=== PATIENT | male | born 1935 | race Two or more races ===

== ENCOUNTER 2021-08-20 05:48 | Day surgery (SDC) | payer OTHER | END 2021-08-20 11:40 | disposition home or self-care (01) | LOC: AMB-ENDOS 05:48 | PROVIDERS: ATTEND Surgery | DX: K22.70 Barrett's esophagus without dysplasia (principal); K29.50 Unspecified chronic gastritis without bleeding; K44.9 Diaphragmatic hernia without obstruction or gangrene; B96.81 Helicobacter pylori [H. pylori] as the cause of diseases classified elsewhere; D12.3 Benign neoplasm of transverse colon; Z20.822 Contact with and (suspected) exposure to COVID-19; K57.30 Diverticulosis of large intestine without perforation or abscess without bleeding; K64.4 Residual hemorrhoidal skin tags; I10 Essential (primary) hypertension; E78.5 Hyperlipidemia, unspecified ==

== ENCOUNTER 2021-12-03 14:17 | Emergency (ER) | payer OTHER ==
[~2021-12-03] VITALS: Ht 154.9 cm; Wt 70.3 kg
[2021-12-03] MEDS ORDERED: CRESTOR20 MG PO (14:45)
[2021-12-03] MEDS ORDERED: PRILOSEC OTC20 MG PO (14:45)
[2021-12-03] MEDS ORDERED: DOXAZOSIN MESYLA2 MG PO (14:45)
[2021-12-03] MEDS ORDERED: ZESTRIL20 MG PO (14:46)
== END 2021-12-04 01:28 | disposition home or self-care (01) ==
LOC: ER 14:17
DX: R10.9 Unspecified abdominal pain (principal); I10 Essential (primary) hypertension; K57.30 Diverticulosis of large intestine without perforation or abscess without bleeding; K40.90 Unilateral inguinal hernia, without obstruction or gangrene, not specified as recurrent

== ENCOUNTER 2021-12-20 06:18 | Day surgery (SDC) | payer OTHER ==
[~2021-12-20] VITALS: Ht 154.9 cm; Wt 68.0 kg
[~2021-12-20 06:18] MED LIST: CRESTOR20 MG PO; DOXAZOSIN MESYLA2 MG PO; PRILOSEC OTC20 MG PO; ZESTRIL20 MG PO
[2021-12-20] MEDS ORDERED: MIRALAX17 GM PO (10:09)
[2021-12-20] MEDS ORDERED: TYLENOL ARTHRI650 MG PO (10:09)
[2021-12-20] MEDS ORDERED: ULTRAM50 MG PO (10:09)
== END 2021-12-20 14:40 | disposition home or self-care (01) ==
LOC: CIR.AMB 06:18
PROVIDERS: ATTEND Surgery
DX: K40.91 Unilateral inguinal hernia, without obstruction or gangrene, recurrent (principal); Z20.822 Contact with and (suspected) exposure to COVID-19; I10 Essential (primary) hypertension; Z87.891 Personal history of nicotine dependence; E11.9 Type 2 diabetes mellitus without complications; M19.90 Unspecified osteoarthritis, unspecified site; K21.9 Gastro-esophageal reflux disease without esophagitis
CPT/HCPCS: 49507; C1781